=== PATIENT | male | born 1985 | race Two or more races ===

== ENCOUNTER 2021-01-21 10:35 | Outpatient (REF) | payer MEDICAID, SELFPAY ==
[2021-01-21 12:22] LABS: SARS COV2 PCR INHOUSE NEGATIVE (Negative)
== END 2021-01-21 10:36 | disposition home or self-care (01) ==
LOC: HO.LAB 10:35
PROVIDERS: Visit Provider Internal Medicine
DX: Z20.822 Contact with and (suspected) exposure to COVID-19 (principal)
CPT/HCPCS: C9803; U0003